=== PATIENT | female | born 1990 | race Caucasian/White ===

== ENCOUNTER 2018-12-23 14:08 | Emergency (ER) | payer SELFPAY ==
[~2018-12-23] VITALS: Ht 167.6 cm; Wt 54.5 kg
[2018-12-23 14:20] VITALS: Ht 167.6 cm; Wt 54.5 kg
[2018-12-23] MEDS ORDERED: KEPPRA1000 MG PO (15:41)
[2018-12-23] MEDS ORDERED: TRILEPTAL300 MG PO (15:41)
[2018-12-23 16:18] VITALS: BP 108/72
== END 2018-12-23 16:19 | disposition home or self-care (01) ==
LOC: D.ER 14:08
DX: G40.909 Epilepsy, unspecified, not intractable, without status epilepticus (principal)